=== PATIENT | male | born 1950 | race African-American/Black ===

== ENCOUNTER 2018-10-18 07:04 | Day surgery (SDC) | payer MEDICARE, MEDICAID ==
[~2018-10-18] VITALS: Ht 171.4 cm; Wt 83.9 kg
[~2018-10-18 07:04] MED LIST: AMOXICILLIN500 MG PO; AUGMENTIN875TAB PO; AUGMENTINES600 PO; BISOPROL FUM5 MG PO; CELEBREX200 MG PO; CELEXA40 M1 PO; CIPROFLOXACN500 MG PO; CORTISPORIN1 % OT; CYCLOBENZAPR10 MG PO; EXFORGE1 TA1 OR; EXFORGE1 TA3 PO; GABAPENTIN300 MG PO; GABAPENTIN400 MG PO; GABAPENTIN600 MG PO; LEVITRA10 MG PO; LISINOP/HCTZ1 TA1 PO; MEDDOSEPAK PO; METHADONE10 M1 PO; MULTIVITAM10 OR; OMEPRAZOLE40 MG PO; OXYCODONE15 MG OR; OXYCODONE20 MG PO; OXYCODONE30 MG PO; PREVACID30 M3 PO; PRILOSEC40 MG PO; RANITIDINE150 M1 PO; SIMVASTATIN20 MG PO; TOPAMAX50 M1 PO; TOPIRAMATE50 MG PO; TRAZODONE50 MG PO; VIAGRA25 MG PO; VIAGRA50 MG PO
[2018-10-18 09:44] VITALS: BP 19/88
== END 2018-10-18 09:52 | disposition home or self-care (01) ==
LOC: ENDO 07:04
PROVIDERS: ATTEND Internal Medicine Gastroenterology
PROC: 0DBM8ZX Excision of Descending Colon, Via Natural or Artificial Opening Endoscopic, Diagnostic (ICD-10-PCS; principal; 2018-10-18)
PROC: 0DBN8ZX Excision of Sigmoid Colon, Via Natural or Artificial Opening Endoscopic, Diagnostic (ICD-10-PCS; 2018-10-18)
DX: K59.00 Constipation, unspecified (principal); D12.4 Benign neoplasm of descending colon; D12.5 Benign neoplasm of sigmoid colon; K57.30 Diverticulosis of large intestine without perforation or abscess without bleeding; K64.4 Residual hemorrhoidal skin tags; K64.8 Other hemorrhoids; I10 Essential (primary) hypertension

== ENCOUNTER 2018-12-31 09:33 | Emergency (ER) | payer MEDICARE, MEDICAID ==
[~2018-12-31] VITALS: Ht 171.4 cm; Wt 90.0 kg
[2018-12-31] MEDS ORDERED: TORADOL PO (10:23)
[2018-12-31 10:44] VITALS: BP 184/90
== END 2018-12-31 10:40 | disposition home or self-care (01) ==
LOC: ED 09:33
DX: S46.911A Strain of unspecified muscle, fascia and tendon at shoulder and upper arm level, right arm, initial encounter (principal); F17.200 Nicotine dependence, unspecified, uncomplicated; W18.39XA Other fall on same level, initial encounter